=== PATIENT | female | born 1965 | race Two or more races ===

== ENCOUNTER 2025-05-01 14:22 | Emergency (ER) | payer OTHER ==
[~2025-05-01] VITALS: Ht 157.5 cm; Wt 95.3 kg
[2025-05-01] MEDS ORDERED: WELLBUTRIN SR200 MG PO (15:01)
[2025-05-01] MEDS ORDERED: METHYLPREDNISOLONE SOD SUCC 125 MG VIAL IV ONE (17:45)
[2025-05-01] MEDS ORDERED: CETIRIZINE HCL 5 MG/5 ML ML PO ONE (17:45)
[2025-05-01] MEDS ORDERED: GUAIFENESIN/DEXTROMETHORPHAN 100MG/10ML BLIST.PACK PO ONE (17:45)
== END 2025-05-01 21:05 | disposition left against medical advice (07) ==
LOC: ER 14:23
DX: J00 Acute nasopharyngitis [common cold] (principal); R05.8 Other specified cough